=== PATIENT | male | born 1995 | race Caucasian/White ===

== ENCOUNTER 2016-10-17 01:01 | Emergency (ER) | payer BC ==
[2016-10-17] MEDS ORDERED: LIDOCAINE 1% INJ-PF (10 MG/ML) 30 ML SDV INJ ONE (03:27)
--- NOTE | 2016-10-17 03:34 | ER Document Report ---
ED General - General Chief Complaint: Laceration Stated Complaint: RIGHT HAND LACERATION Mode of Arrival: Ambulatory Information source: Patient Notes: Patient presents emergency department with complaints of laceration to his right fifth finger. Patient reports he fell asleep on the couch and cut himself on a pocketknife in his pocket. Patient has full range of motion. Laceration is still bleeding. Patient is not on anticoagulants. TRAVEL OUTSIDE OF THE [place] IN LAST 30 DAYS: No - HPI Onset: Just prior to arrival Onset/Duration: Sudden Quality of pain: Achy Severity: Severe Pain Level: 4 Associated symptoms: None Exacerbated by: Movement Relieved by: Denies Similar symptoms previously: No Recently seen / treated by doctor: No - Related Data Allergies/Adverse Reactions: No Known Allergies Allergy (Verified 10/17/16 01:17) Past Medical History - General Information source: Patient - Social History Smoking Status: Unknown if Ever Smoked Cigarette use (# per day): No Frequency of alcohol use: None Drug Abuse: None Occupation: construction Lives with: Family Family History: Other - father and grandfather have hx of chronic kidney stones Renal/ Medical History: Reports: Hx Kidney Stones. Denies: Hx Peritoneal Dialysis Surgical Hx: Negative - Immunizations Immunizations up to date: Yes Hx Diphtheria, Pertussis, Tetanus Vaccination: Yes Review of Systems - Review of Systems Notes: Review HPI for review of systems., All other systems negative Physical Exam - Vital signs Vitals: Temp Pulse Resp BP Pulse Ox 98.1 F 88 18 148/79 H 98 10/17/16 01:17 10/17/16 01:17 10/17/16 01:17 10/17/16 01:10/17/16 01:17 - Notes Notes: PHYSICAL EXAMINATION: GENERAL: Well-appearing and in no acute distress HEAD: Atraumatic, normocephalic. EYES: Pupils equal round and reactive to light, extraocular movements intact, sclera anicteric, conjunctiva are normal. ENT: nares patent, oropharynx clear without exudates. Moist mucous membranes. NECK: Normal range of motion, supple without lymphadenopathy LUNGS: CTAB and equal. No wheezes rales or rhonchi. HEART: Regular rate and rhythm without murmurs ABDOMEN: Soft, no tenderness. No guarding, no rebound EXTREMITIES: Normal range of motion, no pitting edema. No cyanosis. NEUROLOGICAL: Cranial nerves grossly intact. Normal sensory/motor exams. PSYCH: Normal mood, normal affect. SKIN: Warm, Dry, normal turgor, - Skin Skin Temperature: Warm Skin Moisture: Dry Skin irregularity: Laceration - 1 cm horizontal laceration at pip laterally Location of irregularity: Extremities - Right fifth finger lateral laceration Course - Re-evaluation Re-evalutation: 10/17/16 04:28 Laceration closed with 2 sutures. Patient tolerated procedure well. Patient was instructed on signs and symptoms of infection. Patient instructed on Keflex prophylactic since he reports he uses the pocketknife to clean everything from fish to deer. She instructed on the importance of keeping his finger immobile because it's a very delicate area where the sutures could pop open. He verbalized understanding to all instructions. - Vital Signs Vital signs: Temp Pulse Resp BP Pulse Ox 97.4 F 75 16 131/87 H 97 10/17/16 04:58 10/17/16 04:58 10/17/16 04:58 10/17/16 04:58 10/17/16 04:58 Procedures - Immobilization Right 5th digit Immobilizer type: Finger splint (Static) Performed by: PCT Post-Proc Neuro Vasc Exam: Unchanged from pre-exam - Laceration/Wound Repair Right 5th digit Wound length (cm): 1 Wound's Depth, Shape: Superficial Laceration pre-procedure: Gisselle applied Anesthetic type: 1% Lidocaine Volume Anesthetic (mLs): 2 Wound explored: Clean Irrigated w/ Saline (mLs): 200 Wound Repaired With: Sutures Suture Size/Type: 5:0, Nylon Number of Sutures: 2 Hands front picture: 1 - 1 cm lateral horizontal laceration, finger flexed, cleaned well, opened, no tendon injury noted, closed with 2 sutures. Discharge - Discharge Clinical Impression: laceration right fifth finger, Elevated blood pressure reading Condition: Stable Disposition: HOME, SELF-CARE Instructions: Laceration Care ([facility]), Prophylactic Antibiotic ([facility]), Use of Over -The-Counter Ibuprofen ([facility]), Temporary Splint ([facility]), Cephalexin ([facility]) Additional Instructions: *You have been treated for a laceration repair *Take medication as prescribed *Monitor your finger for signs of infection such as increasing pain, redness, swelling, warmth *Keep your finger clean, wear the splint to protect the site *Follow up here in 7-10 days to remove the sutures *Return to ED earlier for signs of infection, worsening condition, changes, needs Monitor your blood pressure. Your blood pressure was elevated today. This may be because you were anxious, in pain or because you need medication. It is important to follow up with your primary care provider for full evaluation. Prescriptions: Cephalexin Monohydrate [Keflex 250 Mg Capsule] 250 mg PO QID #20 capsule Forms: Elevated Blood Pressure, Return to Work
[2016-10-17] MEDS ORDERED: CEPHALEXIN 500 MG CAPSULE PO ONE (04:25)
[2016-10-17 05:00] VITALS: BP 131/87
== END 2016-10-17 04:58 | disposition home or self-care (01) ==
LOC: ER 01:01
PROC: 0HQFXZZ Repair Right Hand Skin, External Approach (ICD-10-PCS; principal; 2016-10-17)
DX: S61.216A Laceration without foreign body of right little finger without damage to nail, initial encounter (principal); W26.0XXA Contact with knife, initial encounter; Y93.84 Activity, sleeping; R03.0 Elevated blood-pressure reading, without diagnosis of hypertension
CPT/HCPCS: 99282

== ENCOUNTER 2018-02-07 20:49 | Emergency (ER) | payer BC, OTHER ==
--- NOTE | 2018-02-07 22:38 | RADIOLOGY REPORT (SQ) ---
EXAM DESCRIPTION: TIBIA FIBULA LEFT COMPLETED DATE/TIME: 02/07/2018 10:23 pm REASON FOR STUDY: laceration COMPARISON: None. NUMBER OF VIEWS: Two views. TECHNIQUE: Two radiographic images acquired of the left tibia and fibula to include the knee and ank le in at least one projection. LIMITATIONS: None. FINDINGS: MINERALIZATION: Normal. BONES: No acute fracture or dislocation. No worrisome bone lesions. SOFT TISSUES: No obvious swelling or foreign body. OTHER: No other significant finding. IMPRESSION: NEGATIVE STUDY OF THE LEFT TIBIA AND FIBULA. NO RADIOGRAPHIC EVIDENCE OF ACUTE INJURY. TECHNICAL DOCUMENTATION: JOB ID: [id number] [employer]- All Rights Reserved Reading location - IP/workstation name: [email or web address]
[2018-02-07] MEDS ORDERED: DIPH/PERTUSS(ACELL)/TETANUS VAC/PF 0.5 ML SYR (>=10YO) IM ONE (22:46)
--- NOTE | 2018-02-07 22:46 | ER Document Report ---
ED Medical Screen (RME) - General Chief Complaint: L leg pain/ bruised Stated Complaint: LEG PAIN Time Seen by Provider: 02/07/18 22:44 Mode of Arrival: Ambulatory Information source: Patient Notes: Patient presents with multiple complaints today. Patient has infected abrasion to his left estes, patient reports this happened several weeks ago, he reports he scraped it on metal. Patient also has a avulsion/laceration to his left hand. Patient reports this happened approximately 1 week ago. Patient unsure when his last tetanus shot was. Exam: Redness and erythema surrounding wound to left estes. I have greeted and performed a rapid initial assessment of this patient. A comprehensive ED assessment and evaluation of the patient, analysis of test results and completion of the medical decision making process will be conducted by additional ED providers. Dictation of this chart was performed using voice recognition software; therefore, there may be some unintended grammatical errors. TRAVEL OUTSIDE OF THE [place] IN LAST 30 DAYS: No - Related Data Allergies/Adverse Reactions: No Known Allergies Allergy (Verified 10/17/16 01:17) Past Medical History - Social History Frequency of alcohol use: Occasional Renal/ Medical History: Reports: Hx Kidney Stones. Denies: Hx Peritoneal Dialysis - Immunizations Immunizations up to date: Yes Hx Diphtheria, Pertussis, Tetanus Vaccination: Yes Course - Laboratory Result Diagrams: 02/07/18 22:35
[2018-02-07 22:49] LABS: ABSOLUTE BASOPHILS # (AUTO) 0.2 10^3/uL (0.0-0.2); ABSOLUTE EOSINOPHILS # (AUTO) 0.3 10^3/uL (0.0-0.6); ABSOLUTE LYMPHOCYTES (AUTO) 3.5 10^3/uL (0.5-4.7); ABSOLUTE MONOCYTES (AUTO) 0.8 10^3/uL (0.1-1.4); ABSOLUTE NEUT (AUTO) 7.7 10^3/uL (1.7-8.2); BASOPHILS % (AUTO) 1.4 % (0-2); EOSINOPHILS % (AUTO) 2.5 % (0-6); HEMATOCRIT 46.1 % (37.9-51.0); LYMPHOCYTES % (AUTO) 28.1 % (13-45); MEAN CORPUSCULAR HEMOGLOBIN 30.4 pg (27.0-33.4); MEAN CORPUSCULAR HGB CONC 34.8 g/dL (32.0-36.0); MEAN CORPUSCULAR VOLUME 87 fl (80-97); MONOCYTES % (AUTO) 6.8 % (3-13); PLATELET COUNT 382 10^3/uL (150-450); RED BLOOD COUNT 5.27 10^6/uL (4.35-5.55); RED CELL DISTRIBUTION WIDTH 13.1 % (11.5-14.0); SEGMENTED NEUTROPHILS % (AUTO) 61.2 % (42-78); TOTAL CELLS COUNTED % (AUTO) 100 %; WHITE BLOOD COUNT 12.5 10^3/uL (4.0-10.5)
--- NOTE | 2018-02-07 23:00 | RADIOLOGY REPORT (SQ) ---
3 VIEWS OF LEFT HAND HISTORY: Laceration. COMPARISON: None. FINDINGS/IMPRESSION: No acute fracture or malalignment. Joint spaces are preserved. Soft tissue irregularity and skin defect overlying the thumb metacarpal. No radiopaque foreign body or periosteal reaction.
[2018-02-07] MEDS ORDERED: LIDOCAINE 1%/EPINEPHRINE INJ 20 ML VIAL INJ ONE (23:55)
--- NOTE | 2018-02-08 00:08 | ER Document Report ---
ED General - General Chief Complaint: L leg pain/ bruised Stated Complaint: LEG PAIN Time Seen by Provider: 02/07/18 22:44 Mode of Arrival: Ambulatory TRAVEL OUTSIDE OF THE [place] IN LAST 30 DAYS: No - HPI Notes: 22-year-old male presents with left leg injury and swelling. Several days ago patient injured his leg at work and sustained an anterior tibial laceration. His developed some swelling and redness in the area. He also sustained an injury unrelated to that and then later date on his left thenar eminence. Describes achy throbbing pain, nonradiating. Some spreading redness. No fever. No vomiting. Seen by the physician in triage and had labs and x-rays placed. No other modifying factors, no other associated symptoms, no other provocative or palliative factors. Gradual onset - Related Data Allergies/Adverse Reactions: No Known Allergies Allergy (Verified 10/17/16 01:17) Past Medical History - General Information source: Patient - Social History Smoking Status: Never Smoker Frequency of alcohol use: Occasional Family History: Reviewed & Not Pertinent, Other - father and grandfather have hx of chronic kidney stones Patient has suicidal ideation: No Patient has homicidal ideation: No Renal/ Medical History: Reports: Hx Kidney Stones. Denies: Hx Peritoneal Dialysis - Immunizations Immunizations up to date: Yes Hx Diphtheria, Pertussis, Tetanus Vaccination: Yes Review of Systems - Review of Systems Notes: Review of systems as in the history of present illness, otherwise negative x 10 systems. Physical Exam - Notes Notes: General: Well devloped, no acute distress. HEENT: Normocephalic, atraumatic. Pupils equal round reactive to light. Mucosa moist. No JVD. Chest: No trauma, normal excursion. Respiratory: Good air exchange, normal excursion. Cardiac: Regular rhythm Abdomen: Soft, benign. Nondistended. Back: No asymmetry or gross abnormality. Motor: Grossly normal power and tone. Neurologic: Alert, nonfocal. Vascular: Well perfused Skin: No petechiae or purpura Extremities: Evaluation of left thenar eminence shows mild erythema surrounding approximately 1 inch curvilinear wound. The left anterior tibial region shows a large healing laceration. There is bogginess and fluctuance noted underneath this. Some surrounding erythema. Course - Re-evaluation Re-evalutation: 02/08/18 00:08 Well-appearing nontoxic male with the after mentioned symptoms. Labs ordered by physician in triage are reviewed, slight leukocytosis otherwise unremarkable. Patient may have an underlying seroma, hematoma or abscess. We will proceed with initial sterile aspiration and possible incision and drainage. Otherwise we will cover with antibiotics for cellulitis. 02/08/18 00:46 Incision and drainage is performed. Purulent material is not return, rather, a large amount of clot is evacuated. Patient is treated with Augmentin for cellulitis, discharge home with a prescription for the same, wound is packed and will have this removed in 2 days and follow-up with his primary care doctor. - Laboratory Result Diagrams: 02/07/18 22:35 Laboratory results interpreted by me: 02/07/18 22:35 WBC 12.5 H Procedures - Incision and Drainage Left Lower Leg Type: Simple, Single Anesthetic type: 1% Lidocaine w/epi Blade size: 11 I&D procedure: Chlorprep applied Incision Method: Incision made by scalpel Amount/type of drainage: Large amount of coagulated blood Discharge - Discharge Clinical Impression: Cellulitis Qualifiers: Site of cellulitis: extremity Site of cellulitis of extremity: lower extremity Laterality: left Qualified Code(s): L03.116 - Cellulitis of left lower limb Condition: Good Disposition: HOME, SELF-CARE Instructions: Cellulitis ([facility]) Additional Instructions: Packing to be removed in 2 days Prescriptions: Amox Tr/Potassium Clavulanate [Augmentin 875-125 Tablet] 1 tab PO BID 10 Days tablet
[2018-02-08] MEDS ORDERED: AMOXICILLIN TR/POT CLAVULANATE 500-125 MG TAB PO ONE (00:50)
== END 2018-02-08 01:22 | disposition home or self-care (01) ==
LOC: ER 20:49
DX: S81.812A Laceration without foreign body, left lower leg, initial encounter (principal); L03.116 Cellulitis of left lower limb; W19.XXXA Unspecified fall, initial encounter; Y99.0 Civilian activity done for income or pay; S69.92XA Unspecified injury of left wrist, hand and finger(s), initial encounter; X58.XXXA Exposure to other specified factors, initial encounter
CPT/HCPCS: 99284; 90471; 36415; 85025; 73130; 73590; 90715; 10060; J3490

== ENCOUNTER 2018-12-06 12:46 | Emergency (ER) | payer BC ==
[2018-12-06] MEDS ORDERED: NORMAL SALINE 1000 ML 1,000 ML IV ONE (13:21)
[2018-12-06] MEDS ORDERED: AMPICILLIN SOD/SULBACTAM 3 GM VIAL IV ONE (13:22)
[2018-12-06] MEDS ORDERED: DEXAMETHASONE SOD PHOS INJ 10 MG/1 ML VIAL IV ONE (13:22)
[2018-12-06] MEDS ORDERED: IBUPROFEN 800 MG TABLET PO ONE (13:24)
--- NOTE | 2018-12-06 13:24 | ER Document Report ---
ED Medical Screen (RME) - General Chief Complaint: Difficulty Swallowing Stated Complaint: FEVER Time Seen by Provider: 12/06/18 13:21 Mode of Arrival: Ambulatory Information source: Patient Notes: Patient presents complaining of sore throat difficulty swallowing and lightheadedness for the past 2 days. Patient attributes the symptoms to a recent bee sting 2 days ago. Site of bee sting without any worrisome symptoms. Patient does report a history of sore throat about a month ago but states that his strep test was negative at that time. Patient has what appears to be bilateral tonsillar abscess, patient speaking in muffled voice. I have greeted and performed a rapid initial assessment of this patient. A comprehensive ED assessment and evaluation of the patient, analysis of test results and completion of the medical decision making process will be conducted by additional ED providers. TRAVEL OUTSIDE OF THE [place] IN LAST 30 DAYS: No - Related Data Allergies/Adverse Reactions: No Known Allergies Allergy (Verified 12/06/18 13:03) Past Medical History - Social History Frequency of alcohol use: Occasional Drug Abuse: None Renal/ Medical History: Reports: Hx Kidney Stones. Denies: Hx Peritoneal Dialysis - Immunizations Immunizations up to date: Yes Hx Diphtheria, Pertussis, Tetanus Vaccination: Yes Physical Exam - Vital signs Vitals: Temp Pulse Resp BP Pulse Ox 102.5 F H 131 H 24 H 123/78 99 12/06/18 13:08 12/06/18 13:08 12/06/18 13:08 12/06/18 13:08 12/06/18 13:08 - HEENT Mouth/Lips: No: Angioedema Pharynx: Erythema, Peritonsillar abscess, Tonsillar hypertrophy Course - Vital Signs Vital signs: Temp Pulse Resp BP Pulse Ox 102.5 F H 131 H 24 H 123/78 99 12/06/18 13:08 12/06/18 13:08 12/06/18 13:08 12/06/18 13:08 12/06/18 13:08
[2018-12-06 14:05] LABS: VENOUS BLOOD BASE EXCESS 1.4 mmol/L; VENOUS BLOOD HCO3 23.8 mmol/L (20-32); VENOUS BLOOD PH 7.49 (7.30-7.42)
[2018-12-06 14:08] LABS: HEMATOCRIT 45.5 % (37.9-51.0); HEMOGLOBIN 15.7 g/dL (13.5-17.0); MEAN CORPUSCULAR HEMOGLOBIN 29.4 pg (27.0-33.4); MEAN CORPUSCULAR HGB CONC 34.6 g/dL (32.0-36.0); MEAN CORPUSCULAR VOLUME 85 fl (80-97); PLATELET COUNT 304 10^3/uL (150-450); RED BLOOD COUNT 5.36 10^6/uL (4.35-5.55); RED CELL DISTRIBUTION WIDTH 13.4 % (11.5-14.0); WHITE BLOOD COUNT 23.3 10^3/uL (4.0-10.5)
[2018-12-06 14:15] LABS: APPEARANCE,URINE SLIGHTLY-CLOUDY; BILIRUBIN,URINE NEGATIVE (NEGATIVE); COLOR,URINE AMBER; GLUCOSE, URINE NEGATIVE (NEGATIVE); KETONES,URINE TRACE mg/dL (NEGATIVE); LEUKOCYTE ESTERASE,URINE NEGATIVE (NEGATIVE); NITRITE,URINE NEGATIVE (NEGATIVE); PROTEIN,URINE 100 mg/dL (NEGATIVE); URINE SPECIFIC GRAVITY 1.032
[2018-12-06 14:18] LABS: INTERNATIONAL RATION (INR) 1.27; PROTHROMBIN TIME 15.9 SEC (11.4-15.4)
[2018-12-06 14:26] LABS: ALANINE AMINOTRANSFERASE 27 U/L (21-72); ALBUMIN 4.9 g/dL (3.5-5.0); ALKALINE PHOSPHATASE 86 U/L (38-126); ANION GAP 14 (5-19); ASPARTATE AMINO TRANSFERASE 24 U/L (17-59); BILIRUBIN,DIRECT 0.4 mg/dL (0.0-0.4); BILIRUBIN,TOTAL 0.9 mg/dL (0.2-1.3); BLOOD UREA NITROGEN 18 mg/dL (7-20); CALCIUM 10.3 mg/dL (8.4-10.2); CARBON DIOXIDE 24 mmol/L (22-30); CHLORIDE 99 mmol/L (98-107); GLUCOSE 111 mg/dL (75-110); POTASSIUM 4.6 mmol/L (3.6-5.0); SODIUM 136.7 mmol/L (137-145); TOTAL PROTEIN 8.2 g/dL (6.3-8.2)
[2018-12-06 14:29] LABS: ABSOLUTE LYMPHOCYTES# (MANUAL) 2.1 10^3/uL (0.5-4.7); ABSOLUTE MONOCYTES # (MANUAL) 2.3 10^3/uL (0.1-1.4); BAND NEUTROPHILS % (MANUAL) 3 % (3-5); BASOPHILS % (MANUAL) 0 % (0-2); EOSINOPHILS % (MANUAL) 0 % (0-6); LYMPHOCYTES % (MANUAL) 9 % (13-45); MONOCYTES % (MANUAL) 10 % (3-13); SEGMENTED NEUTROPHILS % (MAN) 78 % (42-78); TOTAL CELLS COUNTED 100
[2018-12-06 14:31] LABS: PLATELET COMMENT ADEQUATE; POLYCHROMASIA 1+
[2018-12-06] MEDS ORDERED: KETOROLAC TROMETHAMINE INJ/PF 30 MG/1 ML SDV IV ONE (14:47)
[2018-12-06] MEDS ORDERED: MORPHINE SULFATE 10 MG/ML INJ IV ONE (14:47)
[2018-12-06] MEDS ORDERED: ONDANSETRON HCL INJ/PF 4 MG/2 ML SDV IV ONE (14:47)
[2018-12-06] MEDS ORDERED: DIPHENHYDRAMINE HCL 50 MG/ML VIAL IV ONE (15:09)
--- NOTE | 2018-12-06 15:15 | ER Document Report ---
ED General - General Chief Complaint: Difficulty Swallowing Stated Complaint: FEVER Time Seen by Provider: 12/06/18 13:21 Mode of Arrival: Ambulatory Information source: Patient, Relative, [facility] Records Notes: 22-year-old male with ADHD, hypertension presents with complaint of sore throat, painful swallowing and fever. Patient states that sore throat started 2 weeks prior to arrival. He was seen at urgent care at that time and had a negative rapid strep test. He states over the last 2 weeks he has felt more fatigued, weak. He also states that he was stung 4 times by a walks the other day and his symptoms worsen. Patient reports chills, sweats, decrease in appetite. He denies cough, chest pain, shortness of breath, abdominal pain. TRAVEL OUTSIDE OF THE [place] IN LAST 30 DAYS: No - HPI Onset: Other Onset/Duration: Gradual, Persistent, Worse Quality of pain: Burning, Throbbing Severity: Moderate Pain Level: 2 Associated symptoms: Body/muscle aches, Fever, Sore throat, Weakness. denies: Chest pain, Nonproductive cough, Productive cough, Headache, Nausea, Vomiting, Shortness of breath Exacerbated by: Food Relieved by: Denies Similar symptoms previously: No Recently seen / treated by doctor: No - Related Data Allergies/Adverse Reactions: No Known Allergies Allergy (Verified 12/06/18 13:03) Past Medical History - General Information source: Patient - Social History Smoking Status: Former Smoker Frequency of alcohol use: Occasional Drug Abuse: None Lives with: Alone Family History: Reviewed & Not Pertinent, Other - father and grandfather have hx of chronic kidney stones Patient has suicidal ideation: No Patient has homicidal ideation: No - Past Medical History Cardiac Medical History: Reports: Hx Hypertension Renal/ Medical History: Reports: Hx Kidney Stones. Denies: Hx Peritoneal Dialysis Psychiatric Medical History: Reports: Hx Attention Deficit Hyperactivity Disorder - Immunizations Immunizations up to date: Yes Hx Diphtheria, Pertussis, Tetanus Vaccination: Yes Review of Systems - Review of Systems Constitutional: Fever, Malaise, Weakness, Recent illness EENT: Throat pain, Difficulty swallowing, Throat swelling Cardiovascular: denies: Chest pain, Palpitations Respiratory: denies: Cough, Short of breath Gastrointestinal: denies: Abdominal pain, Diarrhea, Nausea, Vomiting Genitourinary: denies: Dysuria, Flank pain Male Genitourinary: No symptoms reported Musculoskeletal: No symptoms reported Skin: denies: Rash Hematologic/Lymphatic: No symptoms reported Neurological/Psychological: denies: Seizure, Headaches -: Yes All other systems reviewed and negative Physical Exam - Vital signs Vitals: Temp Pulse Resp BP Pulse Ox 102.5 F H 131 H 24 H 123/78 99 12/06/18 13:08 12/06/18 13:08 12/06/18 13:08 12/06/18 13:08 12/06/18 13:08 - Notes Notes: PHYSICAL EXAMINATION: GENERAL: Well-appearing, well-nourished and in no acute distress. HEAD: Atraumatic, normocephalic. EYES: Pupils equal round and reactive to light, extraocular movements intact, sclera anicteric, conjunctiva are normal. ENT: Nares patent, 3+ symmetric tonsillar swelling with exudates. Moist mucous membranes. NECK: Normal range of motion, positive anterior cervical lymphadenopathy LUNGS: Breath sounds clear to auscultation bilaterally and equal. No wheezes rales or rhonchi. HEART: Tachycardic, regular rhythm without murmurs ABDOMEN: Soft, nontender, nondistended abdomen. No guarding, no rebound. No masses appreciated. Musculoskeletal: Normal range of motion, no pitting or edema. No cyanosis. NEUROLOGICAL: Cranial nerves grossly intact. Normal speech, normal gait. Normal sensory, motor exams PSYCH: Normal mood, normal affect. SKIN: Warm, Dry, normal turgor, no rashes or lesions noted. Course - Re-evaluation Re-evalutation: 12/06/18 15:14 Temp Pulse Resp BP Pulse Ox 102.5 F H 131 H 24 H 123/78 98 12/06/18 13:08 12/06/18 13:08 12/06/18 13:08 12/06/18 13:08 12/06/18 14:[address] 12/06/18 14:47 IMPRESSION: 1. SYMMETRIC ENLARGEMENT OF BOTH RIGHT AND LEFT PHARYNGEAL TONSILS. GIVEN THE CLINICAL PICTURE, THIS IS MOST LIKELY DUE TO TONSILLITIS. INDISTINCT ILL- DEFINED AREAS OF LOW-ATTENUATION CONCERNING FOR POTENTIAL DEVELOPING TONSILLAR ABSCESSES, ALTHOUGH DISCRETE FLUID COLLECTION NOT YET PRESENT. 2. PROMINENT BILATERAL CERVICAL ADENOPATHY. 3. SINUS DISEASE. 4. NO EVIDENCE OF RETROPHARYNGEAL ABSCESS. 22-year-old healthy male presents with complaint of sore throat, difficulty swallowing, fatigue and decreased appetite. Upon arrival patient is febrile, tachycardic. He appears ill but not toxic or dehydrated. Exam is significant for 3+ tonsillar swelling with exudates. Patient does have significant fullness to the right side of his neck so CT soft tissue neck will be obtained as he does complain of pain when turning his head to the right. Patient has received IV fluids, Toradol, Benadryl, morphine and Zofran. 12/06/18 21:29 Patient is positive for mono. CT of the neck was obtained and concerning for a possible developing tonsillar abscess although there is no discrete fluid col lection. Patient was given clindamycin for this as well as Hycodan for his sore throat. Patient advised that he should not participate in any contact sports and that he will need to follow-up with his primary care physician. Prior to discharge patient's tachycardia and fever resolved. He does state that he is feeling much better now. 12/06/18 21:30 Patient was evaluated and treated as appropriate for the patient's presenting symptoms and complaint, with consideration of any critical or life threatening conditions that may be associated with their obtained history and exam as noted above. All results were discussed with patient and his father who is at the bedside patient provided the opportunity to ask questions, and express concerns. Patient was educated on treatments based on their presumed diagnosis as noted above. At this time we will discharge the patient with return precautions and follow-up recommendations. Verbal discharge instructions given a the bedside. Medication warnings reviewed. Patient is in agreement with this plan and has verbalized understanding of return precautions. After careful consideration I feel that that patient can be safely discharged from the emergency department, they were advised to followup with a primary care physician in 2-3 days. Dictation on this chart was performed using voice recognition software and may result in unintended grammatical, spelling, syntax or errors. - Vital Signs Vital signs: Temp Pulse Resp BP Pulse Ox 98.1 F 80 14 123/72 98 12/06/18 18:15 12/06/18 18:15 12/06/18 18:15 12/06/18 18:15 12/06/18 18:15 - Laboratory Result Diagrams: 12/06/18 13:50 12/06/18 13:50 Laboratory results interpreted by me: 12/06/18 12/06/18 12/06/18 13:50 13:50 13:50 WBC 23.3 H Lymphocytes % (Manual) 9 L Abs Neuts (Manual) 18.9 H Abs Monocytes (Manual) 2.3 H PT 15.9 H VBG pH VBG pCO2 Sodium 136.7 L Glucose 111 H Calcium 10.3 H Urine Protein Urine Ketones Urine Blood Urine Urobilinogen Monotest 12/06/18 12/06/18 12/06/18 13:50 13:50 13:50 WBC Lymphocytes % (Manual) Abs Neuts (Manual) Abs Monocytes (Manual) PT VBG pH 7.49 H VBG pCO2 32.0 L Sodium Glucose Calcium Urine Protein 100 H Urine Ketones TRACE H Urine Blood SMALL H Urine Urobilinogen 2.0 H Monotest POSITIVE H - Diagnostic Test Radiology reviewed: Image reviewed, Reports reviewed Discharge - Discharge Clinical Impression: Sore throat Mononucleosis Qualifiers: Infectious mononucleosis etiology: unspecified organism Infectious mononucleosis complication: without complication Qualified Code(s): B27.90 - Infectious mononucleosis, unspecified without complication Fever Qualifiers: Fever type: post-vaccination Qualified Code(s): R50.83 - Postvaccination fever Condition: Good Disposition: HOME, SELF-CARE Instructions: Fever ([facility]), Mononucleosis ([facility]), Viral Syndrome ([facility]) Additional Instructions: Please be sure to drink plenty of fluids while out in the heat. You can purchase packets of electrolyte replacement solutions such as Pedialyte or propel that you can add to plain water. This will help to make sure that you are getting adequate electrolytes in addition to fluids while working outside. Please return to the emergency department if you pass out, developed diffuse muscle cramping, have persistent vomiting, or have any other symptoms that are worrisome to you. Follow up with your [id number] hours for further care or return to the ED IMMEDIATELY if symptoms worsen or you have any concerns. If you cannot afford to follow up with your primary care physician a list of low cost clinics have been provided at the end of your discharge papers as well. Most prescribed medications have multiple side effects. The safest thing to do is when filling your prescription speak to your pharmacist regarding possible interactions with your normal home medications and over the counter medications such as Ibuprofen, Tylenol, Benadryl. If you experience any symptoms that cause you discomfort or concern you should discontinue the medication immediately and return to the emergency room or call your primary care physician. Recommendations: It is recommended to followup with a primary care doctor within the next 2 days. If you do not have a primary care doctor or you are unable to get an apointment during that time, I left the number for some internal medicine physicians that are affiliated with this [facility]. Dr. Ping Mariano [facility] [address], [place] [address] [phone] Dr Burton Address: [address] [place] [address] , [place] [address] Dr Patel Address: [address] [place] [address] , [place] [address] Prescriptions: Hydrocodone Bit/Homatropine [Hycodan Syrup 5-1.5 mg/5 ml Ud Cup] 5 ml PO Q4HP PRN #120 ml PRN Reason: Clindamycin HCl [Cleocin 300 mg Capsule] 300 mg PO BID #14 capsule Forms: Return to Work
--- NOTE | 2018-12-06 16:18 | RADIOLOGY REPORT (SQ) ---
EXAM DESCRIPTION: CT SOFT TISSUE NECK WITH COMPLETED DATE/TIME: 12/06/2018 4:01 pm REASON FOR STUDY: Concern for retropharyngeal abscess COMPARISON: None. TECHNIQUE: Post IV contrasted scanning from skull base through lung apices with review of bone, soft tissue and lung windows. Reconstructed coronal and sagittal MPR images reviewed. All images stored on PACS. All CT scanners at this facility use dose modulation, iterative reconstruction, and/or weight based d osing when appropriate to reduce radiation dose to as low as reasonably achievable (ALARA). [facility]: Dose Right [facility]: CareDose [facility]: Dose Right [facility]: Teradose 4D [facility]: SoundFit CONTRAST TYPE AND DOSE: contrast/concentration: Isovue 350.00 mg/ml; Total Contrast Delivered: 75.0 ml; Total Saline Delivered: 55.0 ml RENAL FUNCTION: BUN 18 creatinine 1.17. RADIATION DOSE: CT Rad equipment meets quality standard of care and radiation dose reduction techniq ues were employed. CTDIvol: 15.2 - 15.2 mGy. DLP: 1078 mGy-cm. . LIMITATIONS: None. FINDINGS: SKULL BASE: Intact. MAJOR SALIVARY GLANDS: No solid or cystic masses. No inflammatory changes. LYMPHADENOPATHY: Prominent bilateral cervical adenopathy. MUCOSAL MASSES OR ASYMMETRY: Symmetric enlargement of both right and left pharyngeal tonsils with ind istinct ill-defined areas of low attenuation. No thickening or fluid in the retropharyngeal soft tis sues. LARYNX/CORDS: No abnormal findings. VASCULAR STRUCTURES: The major vessels are patent. LUNG APICES: Clear. BONES: Intact. THYROID: Normal size. No masses. PARANASAL SINUSES: Mucous membrane thickening and fluid in the ethmoid and maxillary sinuses. OTHER: No other significant finding. IMPRESSION: 1. SYMMETRIC ENLARGEMENT OF BOTH RIGHT AND LEFT PHARYNGEAL TONSILS. GIVEN THE CLINICAL PICTURE, THIS IS MOST LIKELY DUE TO TONSILLITIS. INDISTINCT ILL-DEFINED AREAS OF LOW-ATTENUATION CONCERNING FOR P OTENTIAL DEVELOPING TONSILLAR ABSCESSES, ALTHOUGH DISCRETE FLUID COLLECTION NOT YET PRESENT. 2. PROMINENT BILATERAL CERVICAL ADENOPATHY. 3. SINUS DISEASE. 4. NO EVIDENCE OF RETROPHARYNGEAL ABSCESS. TECHNICAL DOCUMENTATION: JOB ID: [id number] Quality ID # [id number]: Final reports with documentation of one or more dose reduction techniques (e.g., Au tomated exposure control, adjustment of the mA and/or kV according to patient size, use of iterative reconstruction technique) 2010 [employer]- All Rights Reserved Reading location - IP/workstation name: [email or web address]
[2018-12-06] MEDS ORDERED: CLINDAMYCIN HCL 150 MG CAPSULE PO ONE (17:50)
[2018-12-06 18:15] VITALS: BP 123/72
--- NOTE | 2018-12-06 22:03 | EKG REPORT ---
SEVERITY:- OTHERWISE NORMAL ECG - SINUS TACHYCARDIA : Confirmed by: Bossman Jordan 06-Dec-2018 22:01:14
== END 2018-12-06 18:15 | disposition home or self-care (01) ==
LOC: ER 12:46
DX: B27.90 Infectious mononucleosis, unspecified without complication (principal); R50.83 Postvaccination fever; T50.Z95A Adverse effect of other vaccines and biological substances, initial encounter; J02.9 Acute pharyngitis, unspecified; J35.1 Hypertrophy of tonsils; R13.10 Dysphagia, unspecified; R61 Generalized hyperhidrosis; R63.0 Anorexia; M79.10 Myalgia, unspecified site; R53.1 Weakness; R53.81 Other malaise; I10 Essential (primary) hypertension; Z87.891 Personal history of nicotine dependence; R00.0 Tachycardia, unspecified
CPT/HCPCS: 93005; 99284; 96361; 96375; 96365; 36415; 87040; 87070; 87086; 87880; 82962; 85025; 85610; 87077; 86308; 80053; 81001; 82803; 83605; 70491; 93010; J1200; J0295; J1885; J2270; J2405; J7030; J1100